=== PATIENT | female | born 1975 | race Hispanic/Latino ===

== ENCOUNTER → 2019-01-26 | Outpatient (CLI) | payer OTHER | END | disposition home or self-care (01) | LOC: RAH 10:00 | PROVIDERS: ATTEND Internal Medicine | DX: Z12.31 Encounter for screening mammogram for malignant neoplasm of breast (principal) | CPT/HCPCS: 77067 ==

== ENCOUNTER 2020-05-09 05:54 | Day surgery (SDC) | payer BC ==
[2020-05-06 13:20] LABS: BASOPHILS % (AUTO) 0.6 % (0.0-5.0); EOSINOPHILS % (AUTO) 1.3 % (0.0-8.0); HEMATOCRIT 40.7 % (36-48); LYMPHOCYTES % (AUTO) 23.3 % (21.0-51.0); MEAN CORPUSCULAR HEMOGLOBIN 29.9 pg (27.0-33.0); MEAN CORPUSCULAR HGB CONC 33.9 g/dL (32.0-36.0); MEAN CORPUSCULAR VOLUME 88.1 fL (79-99); MONOCYTES % (AUTO) 4.6 % (3.0-13.0); NEUTROPHILS % (AUTO) 69.8 % (40.0-77.0); PLATELET COUNT (AUTO) 222 K/uL (130-400); RED BLOOD CELL COUNT(AUTO) 4.62 MIL/uL (4.00-5.50); RED CELL DISTRIBUTION WIDTH 12.6 % (11.0-15.5); WHITE BLOOD COUNT (AUTO) 10.2 K/uL (4.8-10.8)
[2020-05-06 13:45] LABS: POTASSIUM 3.9 mmol/L (3.5-5.1)
[2020-05-06 14:18] LABS: CREATININE 0.8 mg/dL (0.5-1.5)
[2020-05-09] VITALS (20 sets, daily range): BP systolic 119–145; BP diastolic 58–86
[~2020-05-09] VITALS: Ht 165.1 cm; Wt 126.6 kg
[~2020-05-09 05:54] MED LIST: ATOR10TA69 PO
[2020-05-09] MEDS ORDERED: CEFAZOLIN 3GM /D5W 100ML 100 ML IV SCH (06:00)
[2020-05-09] MEDS ORDERED: CEFAZOLIN SODIUM 1 GM VIAL ONE (06:12)
[2020-05-09] MEDS ORDERED: SODIUM CHLORIDE 0.9% 1000ML 1,000 ML IV ONE (06:12)
[2020-05-09] MEDS ORDERED: SUCCINYLCHOLINE CHLORIDE 20 MG/ML 10 ML VIAL ONE (07:07)
[2020-05-09] MEDS ORDERED: LIDOCAINE PF 2% 5ML ABBOJECT ONE (07:07)
[2020-05-09] MEDS ORDERED: ROCURONIUM 10MG/1ML SYR 10 MG/ML ML ONE (07:08)
[2020-05-09] MEDS ORDERED: MIDAZOLAM HCL 1 MG/ML 2ML VIAL ONE (07:08)
[2020-05-09] MEDS ORDERED: ONDANSETRON HCL 4 MG/2 ML VIAL ONE ×2 (07:08→10:00)
[2020-05-09] MEDS ORDERED: PROPOFOL 10 MG/ML 20ML VIAL IV ONE (07:08)
[2020-05-09] MEDS ORDERED: FENTANYL CITRATE PF 50 MCG/1 ML 2ML VIAL ONE (07:09)
[2020-05-09] MEDS ORDERED: EPHEDRINE SULFATE 50 MG/ML AMPULE ONE (08:04)
[2020-05-09] MEDS: LACTATED RINGERS 1000ML 1,000 ML IV SCH ×2 (08:08→08:44)
[2020-05-09] MEDS ORDERED: MEPERIDINE-PF 25 MG/ML SYG ONE (10:00)
--- NOTE | 2020-05-09 10:25 | NUR ---
PT ARRIVED FROM PACU WITH C/O PAIN TO ABDOMEN/PUBIC AREA. RATED A 5. ALSO C/0 NAUSEA. I NOTIFIED [facility] AND WAS INSTRUCTED TO FOLLOW PACU DEMEROL ZOFRAN ORDERS WHICH I CARRIED OUT. PLEASE REFER TO EMAR. PT OTHERWISE STABLE . HAD A FEMININE PAD THAT WAS SOILED WITH SMALL AMT OF BLOOD. PAD CHANGED PRN
--- NOTE | 2020-05-09 11:15 | NUR ---
PT DISCHARGED HOME WITH DAUGHTER. TO CAR VIA WHEELCHAIR. PT AMBULATORY IN ROOM. TO BATHROOM TO VOID. PRINTED AND VERBAL DISCHARGE INSTRUCTIONS GIVEN. VERBALIZES UNDERSTANDING.I ALSO GAVE THEM TO DAUGHTER ON PHONE. NO ACUTE DISTRESS. PAIN RESOLVED
== END 2020-05-09 11:15 | disposition home or self-care (01) ==
LOC: DAH 05:54
PROVIDERS: ATTEND Obstetrics & Gynecology
DX: N91.2 Amenorrhea, unspecified (principal); R93.89 Abnormal findings on diagnostic imaging of other specified body structures; E11.9 Type 2 diabetes mellitus without complications; E66.01 Morbid (severe) obesity due to excess calories; E78.00 Pure hypercholesterolemia, unspecified; Z80.3 Family history of malignant neoplasm of breast; Z79.899 Other long term (current) drug therapy; Z20.828 Contact with and (suspected) exposure to other viral communicable diseases
CPT/HCPCS: 36415 ×2; 58558; 80048; 82948 ×2; 84703; 85025; 86850 ×2; 86900 ×2; 86901 ×2; A4222; A4223; A4351; A4355; A4510; A4600; A4606; A6260; C9803; J0330; J0690; J2001; J2175; J2250; J2405 ×2; J2704; J3010; J3490; J7030 ×2; U0003

== ENCOUNTER → 2022-12-09 | Outpatient (CLI) | payer BC | END | disposition home or self-care (01) | LOC: RAH 12:43 | PROVIDERS: ATTEND Internal Medicine | DX: Z12.31 Encounter for screening mammogram for malignant neoplasm of breast (principal) | CPT/HCPCS: 77067 ==

== ENCOUNTER → 2023-11-05 | Outpatient (CLI) | payer OTHER | END | disposition home or self-care (01) | LOC: OIH 08:15 | PROVIDERS: ATTEND Internal Medicine | DX: Z13.6 Encounter for screening for cardiovascular disorders (principal) | CPT/HCPCS: 75571 ==